=== PATIENT | female | born 1995 | race Two or more races ===

== ENCOUNTER 2023-04-26 19:47 | Emergency (ER) | payer OTHER ==
[2023-04-26] MEDS ORDERED: Cyclobenzaprine 10 MG Tab PO STA (22:14)
== END 2023-04-26 22:29 | disposition home or self-care (01) ==
LOC: MW.ED 19:47
DX: M79.605 Pain in left leg (principal); V49.59XA Passenger injured in collision with other motor vehicles in traffic accident, initial encounter
CPT/HCPCS: 99283; A9270